=== PATIENT | female | born 1975 | race Caucasian/White ===

== ENCOUNTER 2021-12-03 09:50 | Outpatient (CLI) | payer OTHER, SELFPAY ==
[2021-12-03 13:48] LABS: Vitamin D 25 Hydroxy* 80 ng/mL (30-80)
[2021-12-03 14:19] LABS: Vitamin B12* 415 pg/mL (243-894)
== END 2021-12-03 09:51 | disposition home or self-care (01) ==
PROVIDERS: PCP Physician Assistant Medical; Visit Provider Physician Assistant Medical
DX: G25.81 Restless legs syndrome (principal); R53.83 Other fatigue; F41.9 Anxiety disorder, unspecified
CPT/HCPCS: 82306; 82607; 82728; 84443

== ENCOUNTER 2021-12-27 19:27 | Outpatient (CLI) | payer OTHER, SELFPAY ==
--- NOTE | 2022-01-05 08:43 | W.PM.SLEEP ---
Sleep Study Details Details Interpreting Provider: Enrique Horvath MD Date of Sleep Study: 12/27/21 Sleep Study Details: STUDY TYPE:? Home ? BMI:? 27.6 ORDERING PROVIDER:? Monty INDICATION:? Concerns about sleep apnea ? SLEEP SUMMARY:? 498 monitored minutes RESPIRATORY SUMMARY:? AHI is 8.4, supine AHI 10.8, left lateral 7.0, right lateral 4.1 Low oxygen 81 4.8% of study oxygen less than 90% Snoring% 2.8 PERIODIC LIMB MOVEMENTS OF SLEEP:? Not recorded CARDIAC:? Range 70-109, mean 85.7 IMPRESSION:? Mild obstructive sleep apnea with some supine position dependency RECOMMENDATION: Treatment options include AutoSet CPAP, dental appliance and/or airway expansion surgery.
== END 2021-12-27 19:28 | disposition home or self-care (01) ==
LOC: SLEEP 19:28
PROVIDERS: PCP Physician Assistant Medical; Visit Provider Physician Assistant Medical
DX: G47.33 Obstructive sleep apnea (adult) (pediatric) (principal)
CPT/HCPCS: 95806

== ENCOUNTER 2022-04-02 09:42 | Day surgery (SDC) | payer OTHER, SELFPAY ==
[2022-04-02] VITALS (12 sets, daily range): BP systolic 106–133; BP diastolic 76–99; PULSE 83–102; RESP 14–18; TEMP 36.1–36.6; O2SAT 95–100; BMI 27.9
[2022-04-02] MEDS: LACTATED RINGERS 1000 ML 1,000 ML 100 ML IV (08:55)
[2022-04-02 10:00] LABS: HCG Qualitative* Negative (Negative)
[2022-04-02] MEDS: OXYMETAZOLINE 0.05% NASAL SPRAY 2 SPRAY NOSTRIL-B (10:00)
[2022-04-02] MEDS: SODIUM CHLORIDE 0.9 % (FLUSH) 10 ML SYRINGE IVF (10:04)
[2022-04-02] MEDS: BUPIVACAINE 0.5%/EPINEPHRINE 0.9 MG (30.9 ML) INJECTION (10:45)
[2022-04-02] MEDS: MUPIROCIN 1 GM PACKET 1 APPLIC TOPICAL (11:00)
[2022-04-02] MEDS: AYR SALINE NASAL GEL 1 APPLIC NOSTRIL-B (11:00)
[2022-04-02] MEDS: OXYMETAZOLINE (AFRIN) SOAK 1 EACH TOPICAL (11:00)
[2022-04-02] MEDS: COCAINE HCL 4 % 4 ML SOLUTION NOSTRIL-B (11:00)
--- NOTE | 2022-04-02 11:38 | W.ANESCHARGE ---
Anesthesia Charges Start Date/Time Anesthesia Start Date: 04/02/22 Anesthesia Start Time: 10:58 Stop Date/Time Anesthesia Stop Date: 04/02/22 Anesthesia Stop Time: 11:37 Summary Emergency: No
--- NOTE | 2022-04-02 11:47 | P.ENTPROC_ITS ---
Procedure Note Date of procedure: 04/02/22 Procedure: Preoperative diagnosis deviated septum nasal headache nasal obstruction inferior turbinate hypertrophy bilateral Postoperative diagnosis same Procedure septoplasty submucous partial resection inferior turbinates bilateral Under general endotracheal anesthesia patient was prepped and draped in the usual fashion. The nose was injected and decongested. A stab incision was made in the anterior of the right inferior turbinate a tunnel created with a Codington dissector. The rachael bone was outfractured and a conservative anterior submucous resection performed. The Coblation Wand was used to cauterize intramurally along the inferior 10% more posteriorly. This was repeated on the left side in identical fashion. The septal deflection with superior area 3 an incision was made in mucosa anterior to this mucosa on the left side elevated over the deflection. The John dissector was used to cut through the cartilage and elevate the mucosa on the opposite side. A turbinate scissors was then used to cut above and below the deflected portion and it was removed. This was then straightened returned to the intraseptal space. No sutures were placed. The right middle turbinate was crushed with the Néstor forceps. A Merocel packs coated in Bactroban were placed on each side of the nose to compress the septum. The patient tolerated well was taken recovery in satisfactory condition. Blood loss less than 25 mL. Complications 0 Surgeon: Enrique Horvath MD
[2022-04-02] MEDS: OXYCODONE 5 MG TABLET PO (12:22)
[2022-04-02] MEDS: ACETAMINOPHEN 325 MG TABLET PO (12:22)
== END 2022-04-02 13:10 | disposition home or self-care (01) ==
PROVIDERS: Nurse Anesthetist, Certified Registered; PCP Physician Assistant Medical; Visit Provider Otolaryngology
PROC: (CPT 30520; principal; 2022-04-02 10:45)
DX: J34.2 Deviated nasal septum (principal); J34.3 Hypertrophy of nasal turbinates; R51.9 Headache, unspecified
CPT/HCPCS: 30520; 30140; 00160; 84703; A9270; J0330; J1100; J2250; J2405; J2704; J3010; J7120

== ENCOUNTER 2022-04-21 08:37 | Outpatient (CLI) | payer OTHER, SELFPAY ==
[2022-04-21 13:05] LABS: Cholesterol* 152 mg/dL (90-199)
[2022-04-21 13:06] LABS: Glucose* 89 mg/dL (60-115); HDL Cholesterol* 48 mg/dL (>=50); LDL Cholesterol Calculated 90 mg/dL (<100); Triglycerides* 72 mg/dL (40-149)
[2022-04-21 13:42] LABS: Ferritin* 19.7 ng/mL (6.24-137.0)
== END 2022-04-21 08:38 | disposition home or self-care (01) ==
PROVIDERS: PCP Physician Assistant Medical; Visit Provider Physician Assistant Medical
DX: Z00.00 Encounter for general adult medical examination without abnormal findings (principal); R79.0 Abnormal level of blood mineral; R53.83 Other fatigue; Z13.6 Encounter for screening for cardiovascular disorders; Z13.1 Encounter for screening for diabetes mellitus
CPT/HCPCS: 80061; 82728; 82947

== ENCOUNTER 2023-05-02 08:23 | Outpatient (CLI) | payer OTHER, SELFPAY | END 2023-05-02 08:24 | disposition home or self-care (01) | PROVIDERS: PCP Physician Assistant Medical; Visit Provider Physician Assistant Medical | DX: Z00.00 Encounter for general adult medical examination without abnormal findings (principal); R53.83 Other fatigue; R79.0 Abnormal level of blood mineral; F90.9 Attention-deficit hyperactivity disorder, unspecified type; Z13.6 Encounter for screening for cardiovascular disorders; Z13.29 Encounter for screening for other suspected endocrine disorder; Z13.0 Encounter for screening for diseases of the blood and blood-forming organs and certain disorders involving the immune mechanism | CPT/HCPCS: 80053; 80061; 80306; 82306; 82728; 83540; 83550 ==

== ENCOUNTER 2023-08-12 14:39 | Outpatient (CLI) | payer OTHER, SELFPAY ==
--- NOTE | 2023-08-12 15:00 | CRLHL7_ITS ---
For Patients: As a result of the Century Cures Act, medical imaging exams and procedure reports are released immediately into your electronic medical record. You may view this report before your referring provider. If you have questions, please contact your health care provider. BILATERAL DIGITAL SCREENING MAMMOGRAM WITH COMPUTER-AIDED DETECTION AND TOMOSYNTHESIS CLINICAL HISTORY: Routine screening exam. COMPARISON: 09/30/2020, 03/30/2018. TECHNIQUE: Digital mammogram in CC and MLO projections including computer-aided detection (CAD). Tomosynthesis was used in this interpretation. BREAST COMPOSITION: The breasts are heterogeneously dense, which may obscure small masses. FINDINGS: RIGHT Breast: No suspicious findings. LEFT Breast: Focal nodular density within the upper-outer quadrant located 7 cm from the nipple, probable fibrocystic change. IMPRESSION: LEFT breast asymmetry/mass. RECOMMENDATIONS: Additional mammographic views of the LEFT breast including 3D spot compression CC/MLO. LEFT breast ultrasound may also be required. BI-RADS Category 0: Incomplete: Need Additional Imaging Evaluation and/or Prior Mammograms for Comparison. [facility] will contact the patient. A lay language report of this examination will be provided to the patient. Dictated by Wilfredo Rowe MD @ 08/15/2023 8:52:18 AM/CRL:[email or web address] PT/Dictated by: Wilfredo Rowe MD @ 08/15/2023 8:52:00 AM (Electronically Signed)
== END 2023-08-12 14:40 | disposition home or self-care (01) ==
LOC: MAMMO 14:40
PROVIDERS: PCP Physician Assistant Medical; Visit Provider Physician Assistant Medical
DX: Z12.31 Encounter for screening mammogram for malignant neoplasm of breast (principal); N63.20 Unspecified lump in the left breast, unspecified quadrant; R92.2 Inconclusive mammogram
CPT/HCPCS: 77063; 77067

== ENCOUNTER 2023-08-24 10:28 | Outpatient (CLI) | payer OTHER, SELFPAY ==
--- NOTE | 2023-08-24 10:45 | CRLHL7_ITS ---
For Patients: As a result of the Century Cures Act, medical imaging exams and procedure reports are released immediately into your electronic medical record. You may view this report before your referring provider. If you have questions, please contact your health care provider. DIGITAL DIAGNOSTIC LEFT MAMMOGRAM USING TOMOSYNTHESIS AND COMPUTER-AIDED DETECTION LEFT BREAST ULTRASOUND CLINICAL HISTORY: LEFT breast mass/asymmetry. COMPARISON: 08/12/2023. TECHNIQUE: Digital LEFT mammogram in two projections with computer-aided detection. Tomosynthesis was used in this interpretation. Real-time ultrasound imaging of LEFT breast with imaging documentation. BREAST COMPOSITION: The breast is heterogeneously dense, which may obscure small masses. FINDINGS: 3D spot compression CC/MLO LEFT breast mammogram images submitted. Persistent nodular density within the upper outer quadrant. No architectural distortion. No suspicious calcifications. Targeted LEFT breast ultrasound performed at 1 o`clock 6 cm from the nipple. In this location, there is a simple circumscribed ovoid anechoic cyst with increased through-transmission measuring 2.6 x 1.0 x 1.7 cm. Additional benign cyst is located at 1 o`clock 3 cm from the nipple measuring 1.6 x 1.0 x 1.4 cm. IMPRESSION: No suspicious findings. Benign fibrocystic changes LEFT breast upper outer quadrant 1 o`clock 3 cm from the nipple and 6 cm from the nipple. RECOMMENDATIONS: Annual bilateral screening mammography. Results and recommendations discussed with the patient. BI-RADS Category 2: Benign A lay language report of this examination will be provided to the patient. Dictated by Wilfredo Rowe MD @ 08/24/2023 1:19:38 PM nevaj/Dictated by: Wilfredo Rowe MD @ 08/24/2023 1:19:00 PM (Electronically Signed)
--- NOTE | 2023-08-24 11:15 | CRLHL7_ITS ---
For Patients: As a result of the Cures Act, medical imaging exams and procedure reports are released immediately into your electronic medical record. You may view this report before your referring provider. If you have questions, please contact your health care provider. PLEASE SEE DIGITAL DIAGNOSTIC LEFT MAMMOGRAM PERFORMED SAME DAY [email or web address] castanon/Dictated by: Wilfredo Rowe MD @ 08/24/2023 1:19:00 PM (Electronically Signed)
== END 2023-08-24 10:29 | disposition home or self-care (01) ==
LOC: MAMMO 10:29
PROVIDERS: PCP Physician Assistant Medical; Visit Provider Physician Assistant Medical
DX: N63.20 Unspecified lump in the left breast, unspecified quadrant (principal); R92.8 Other abnormal and inconclusive findings on diagnostic imaging of breast
CPT/HCPCS: 76642; 77065; G0279

== ENCOUNTER 2024-12-14 09:28 | Outpatient (CLI) | payer OTHER, SELFPAY | END 2024-12-14 09:29 | disposition home or self-care (01) | PROVIDERS: PCP Physician Assistant Medical; Visit Provider Physician Assistant Medical | DX: N95.1 Menopausal and female climacteric states (principal) | CPT/HCPCS: 82670; 84144; 84403 ==